=== PATIENT | male | born 1975 | race African-American/Black ===

== ENCOUNTER 2019-02-07 11:28 | Day surgery (SDC) | payer MEDICAID ==
[~2019-02-07] VITALS: Ht 180.3 cm; Wt 85.0 kg
[~2019-02-07 11:28] MED LIST: SODIUM CHLORIDE 0.9% 1,000 ML IV ONE
[2019-02-07] MEDS ORDERED: LIDOCAINE/PF 2% 5 ML VIAL IM ONE (11:29)
[2019-02-07] MEDS ORDERED: PROPOFOL 1% 20 ML VIAL IVP ONE (11:29)
[2019-02-07] MEDS ORDERED: SODIUM CHLORIDE 0.9% 1,000 ML IV ONE (11:30)
== END 2019-02-07 14:55 | disposition home or self-care (01) ==
LOC: SURGERY 11:28
PROVIDERS: ATTEND Student in an Organized Health Care Education/Training Program
DX: R10.13 Epigastric pain (principal); K29.50 Unspecified chronic gastritis without bleeding; K25.9 Gastric ulcer, unspecified as acute or chronic, without hemorrhage or perforation; K26.9 Duodenal ulcer, unspecified as acute or chronic, without hemorrhage or perforation; I10 Essential (primary) hypertension; Z79.899 Other long term (current) drug therapy; Z98.890 Other specified postprocedural states
CPT/HCPCS: 43239; 88305; 88312; 88313; C1769; J2704; J3490; J7030